=== PATIENT | male | born 1990 | race Caucasian/White ===

== ENCOUNTER 2020-02-03 11:13 | Inpatient (IN) | payer MEDICAID ==
[~2020-02-03] VITALS: Ht 200.7 cm; Wt 87.3 kg
--- NOTE | 2020-02-03 11:31 | NUR ---
AUDIO/VIDEO ENGINEER: PT TO ROOM FROM [facility]
[2020-02-03] MEDS ORDERED: ONDANSETRON 2MG/ML, 2ML IVPush ONE (12:30)
[2020-02-03] MEDS ORDERED: HYDROmorphone 1 MG/ML, 1ML INJ IV ONE (12:30)
[2020-02-03] MEDS ORDERED: MIDAZOLAM 1 MG/ML, 2ML ONE (12:37)
[2020-02-03] MEDS ORDERED: FENTANYL PF 250 MCG/5ML ONE (12:37)
--- NOTE | 2020-02-03 12:59 | NUR ---
EDU PT ON NPO, CALLED THE OR AND GAVE UPDATE ON PT
[2020-02-03] MEDS ORDERED: LABETALOL 5MG/ML, 20ML IV PRN (13:30)
[2020-02-03] MEDS ORDERED: MEPERIDINE/PF 25MG/0.5ML IVPush PRN (13:30)
[2020-02-03] MEDS ORDERED: HYDROmorphone 1 MG/ML, 1ML INJ IVPush PRN (13:30)
[2020-02-03] MEDS ORDERED: EPHEDRINE 50 MG/ML, 1ML IVPush PRN (13:30)
[2020-02-03] MEDS ORDERED: hydrALAzine 20 MG/ML, 1ML IV PRN (13:30)
[2020-02-03] MEDS ORDERED: OXYcodone 5 MG/5 ML ORAL.SOL UDC PO PRN (13:30)
[2020-02-03] MEDS ORDERED: ONDANSETRON 2MG/ML, 2ML IVPush PRN (13:30)
[2020-02-03] MEDS ORDERED: PROMETHAZINE 25 MG/ML, 1ML IVPush PRN (13:30)
[2020-02-03] MEDS ORDERED: ACETAMINOPHEN 325 MG TABLET PO PRN (13:30)
--- NOTE | 2020-02-03 13:40 | NUR ---
GAVE REPORT TO ANESTHESIOLOGY OR, PT TO OR AT THIS TIME.
[2020-02-03] MEDS ORDERED: LIDOCAINE 1%-EPI 1:100K, 20ML ONE (13:53)
[2020-02-03] MEDS ORDERED: CHLORHEXIDINE 15 ML UDC MM ONE (14:00)
[2020-02-03] MEDS ORDERED: KETOROLAC 30 MG/1 ML ONE (14:30)
[2020-02-03] MEDS ORDERED: LIDOCAINE-MPF 2% ,5ML ONE (14:30)
[2020-02-03] MEDS ORDERED: SUCCINYLCHOLINE 20 MG/ML, 10ML ONE (14:31)
[2020-02-03] MEDS ORDERED: DEXAMETHASONE 4 MG/ML, 1ML ONE (14:31)
[2020-02-03] MEDS ORDERED: PROPOFOL 10 MG/ML, 20ML ONE (14:31)
[2020-02-03] MEDS ORDERED: ONDANSETRON 2MG/ML, 2ML ONE (14:31)
[2020-02-03] MEDS ORDERED: AMPICILLIN/SULBACTAM 3 GM in SODIUM CHLORIDE 0.9% 100 ML IV ONE (14:34)
[2020-02-03] MEDS ORDERED: FENTANYL PF 100 MCG/2ML ONE ×5 (14:47→15:58)
[2020-02-03] MEDS ORDERED: BACITRACIN OINT 500U/GM, 15 GM ONE (15:33)
[2020-02-03] MEDS: FENTANYL PF 100 MCG/2ML IV PRN ×4 (15:49→16:10)
[2020-02-03] MEDS ORDERED: PROMETHAZINE 25 MG/ML, 1ML ONE (15:58)
[2020-02-03] MEDS: SODIUM CHLORIDE 0.9% 1,000 ML IV SCH (17:44)
[2020-02-03 19:17] VITALS: BP 130/86
[2020-02-03] MEDS ORDERED: IBUPROFEN 600 MG TABLET PO PRN (21:00)
[2020-02-03] MEDS: AMPICILLIN/SULBACTAM 3 GM in SODIUM CHLORIDE 0.9% 100 ML IV SCH (22:06)
[2020-02-03 23:39] VITALS: BP 108/72
[2020-02-04 03:18] VITALS: BP 118/73
[2020-02-04] MEDS: AMPICILLIN/SULBACTAM 3 GM in SODIUM CHLORIDE 0.9% 100 ML IV SCH ×3 (04:51→17:00)
[2020-02-04 05:52] LABS: ANION GAP 5 mmol/L (5-15); BASOPHILS % (AUTO) 0 % (0-1); CALCIUM 8.7 mg/dL (8.5-10.1); CHLORIDE 109 mmol/L (98-107); CREATININE 0.89 mg/dL (0.7-1.3); EOSINOPHILS % (AUTO) 0 % (1-7); LYMPHOCYTES # (AUTO) 0.78 x10^3/uL (1-3.4); LYMPHOCYTES % (AUTO) 8 % (22-44); MD NO; MEAN CORPUSCULAR HEMOGLOBIN 29.2 pg (27.5-34.5); MEAN CORPUSCULAR VOLUME 85.7 fL (81-97); MEAN PLATELET VOLUME 8.8 fL (7.4-10.4); MONOCYTES # (AUTO) 0.73 x10^3/uL (0.2-0.8); MONOCYTES % (AUTO) 8 % (2-9); NEUTROPHILS # (AUTO) 8.29 x10^3/uL (1.8-6.8); NEUTROPHILS % (AUTO) 85 % (42-75); PLATELET COUNT 199 x10^3/uL (130-400); RED BLOOD COUNT 4.93 x10^6/uL (4.38-5.82); RED CELL DISTRIBUTION WIDTH 12.1 % (9.4-14.8)
[2020-02-04 08:35] VITALS: BP 131/80
[2020-02-04] MEDS: SODIUM CHLORIDE 0.9% 1,000 ML IV SCH (09:00)
[2020-02-04 14:33] VITALS: BP 125/82
[2020-02-04] MEDS ORDERED: AMOX1TAB64 PO (16:16)
== END 2020-02-04 18:14 | disposition home or self-care (01) | DRG 580 ==
LOC: ED 13:01 → EDIP 13:34 → 4NE 17:21
PROVIDERS: ADMIT Internal Medicine; ATTEND Internal Medicine
PROC: 0CDXXZ0 Extraction of Lower Tooth, Single, External Approach (ICD-10-PCS; 2020-02-03)
PROC: 0C94XZZ Drainage of Buccal Mucosa, External Approach (ICD-10-PCS; principal; 2020-02-03 14:15)
DX: L02.01 Cutaneous abscess of face (principal); L03.211 Cellulitis of face; K04.7 Periapical abscess without sinus; K02.9 Dental caries, unspecified; Z87.891 Personal history of nicotine dependence; Z88.1 Allergy status to other antibiotic agents; Z03.818 Encounter for observation for suspected exposure to other biological agents ruled out
CPT/HCPCS: 36415; 70100; J3490; 80048; 85025; 87635; G0378; J0295; J1100; J1170; J1885; J2250; J2405; J2550; J2704; J3010; J0330; J7030